=== PATIENT | male | born 2000 | race Two or more races ===

== ENCOUNTER 2021-10-15 14:30 | Emergency (ER) | payer OTHER ==
[~2021-10-15] VITALS: Ht 167.6 cm; Wt 72.6 kg
[2021-10-15 15:26] VITALS: BP 137/80
[2021-10-15] MEDS ORDERED: IBUPROFEN 600 MG TAB PO ONE (15:45)
[2021-10-15] MEDS ORDERED: IBUP600T27 PO (16:28)
[2021-10-15] MEDS ORDERED: METH750T22 PO (16:28)
== END 2021-10-15 16:36 | disposition home or self-care (01) ==
LOC: ER 14:30 → EDBD 14:30 → ER 16:35
DX: S16.1XXA Strain of muscle, fascia and tendon at neck level, initial encounter (principal); V43.52XA Car driver injured in collision with other type car in traffic accident, initial encounter; Y93.89 Activity, other specified; Y92.410 Unspecified street and highway as the place of occurrence of the external cause; Y99.8 Other external cause status
CPT/HCPCS: 72040